=== PATIENT | male | born 1965 | race Two or more races ===

== ENCOUNTER 2020-03-13 02:59 | Emergency (ER) | payer MEDICAID, OTHER ==
[~2020-03-13] VITALS: Ht 175.3 cm; Wt 68.0 kg
[2020-03-13] MEDS ORDERED: LORAZEPAM INJ 2 MG/ML VIAL IM ONE (03:00)
[2020-03-13] MEDS ORDERED: HALOPERIDOL LACTATE INJ 5 MG/ML VIAL IM ONE (03:00)
[2020-03-13] MEDS ORDERED: HALOPERIDOL LACTATE INJ 5 MG/ML VIAL ONE (03:01)
[2020-03-13] MEDS ORDERED: LORAZEPAM INJ 2 MG/ML VIAL ONE (03:03)
--- NOTE | 2020-03-13 03:05 | NUR ---
PT [employer] AND [employer] FOR C/O L WRIST PAIN S/P FALL AT 1630 YESTERDAY. PT AWAKE, DELIRIOUS, AND MANIC, VSS, RESPIRATIONS EVEN AND UNLABORED ON RA W/ NAD NOTED. PT CONNECTED TO THE [employer] AND POX.
[2020-03-13 03:21] LABS: BASOPHILS # (AUTO) 0.1 /CMM (0.0-0.2); BASOPHILS % (AUTO) 0.8 % (0.0-2.0); EOSINOPHILS % (AUTO) 0.1 % (0.0-6.0); HEMATOCRIT 40 % (39-51); HEMOGLOBIN 13.1 g/dL (13.5-17.5); MEAN CORPUSCULAR HGB CONC 33 g/dl (31.0-36.0); MEAN CORPUSCULAR VOLUME 88 fL (80-96); NEUTROPHILS # (AUTO) 10.1 /CMM (1.8-8.9); NEUTROPHILS % (AUTO) 83.1 % (43.0-81.0); PLATELET COUNT (AUTO) 364 /CMM (150-450); RED BLOOD CELL COUNT(AUTO) 4.51 MIL/uL (4.5-6.0); WHITE BLOOD COUNT (AUTO) 12.1 K/uL (4.3-11.0)
[2020-03-13 03:28] LABS: CALCIUM, SERUM 8.4 mg/dL (8.5-10.1); CARBON DIOXIDE 24 mmol/L (21-32); CHLORIDE 99 mmol/L (98-107); CREATININE 2.1 mg/dL (0.6-1.3); GLUCOSE 88 mg/dL (74-106); POTASSIUM 4.4 mmol/L (3.5-5.1); SODIUM SERUM 139 mmol/L (136-145); UREA NITROGEN, BLOOD 31 mg/dL (7-18)
[2020-03-13 03:33] LABS: ALANINE AMINOTRANSFERASE 39 U/L (12-78); ALBUMIN 4.2 g/dL (3.4-5.0); ALCOHOL, BLOOD < 3 mg/dL (0-0); ALKALINE PHOSPHATASE 122 U/L (46-116); ASPARTATE AMINOTRANSFERASE 71 U/L (15-37); BILIRUBIN,DIRECT 0.1 mg/dL (0.0-0.2); BILIRUBIN,TOTAL 0.3 mg/dL (0.2-1.0); TOTAL PROTEIN, SERUM 8.2 g/dL (6.4-8.2)
[2020-03-13 03:38] LABS: ACETAMINOPHEN 0 ug/ml (10-30); SALICYLATE 2.7 mg/dL (2.8-20.0)
--- NOTE | 2020-03-13 05:40 | NUR ---
PT AWAKE. AAOX4. AMBULATORY WITH STEADY GAIT. PT MEDICALLY CLEARED FOR DISCHARGE.
--- NOTE | 2020-03-13 05:40 | NUR ---
Patient given written and verbal discharge instructions. Patient verbalizes understanding of instructions. Patient is ambulatory with steady gait. Refuses offer of residential placement. Patient given list of available shelters in surrounding area.
[2020-03-13 05:48] VITALS: BP 129/80
== END 2020-03-13 05:48 | disposition home or self-care (01) ==
LOC: ER 03:00
DX: S63.592A Other specified sprain of left wrist, initial encounter (principal); F19.10 Other psychoactive substance abuse, uncomplicated; J45.909 Unspecified asthma, uncomplicated; Z88.8 Allergy status to other drugs, medicaments and biological substances; W18.39XA Other fall on same level, initial encounter; Y93.89 Activity, other specified; Y92.89 Other specified places as the place of occurrence of the external cause; Y99.8 Other external cause status
CPT/HCPCS: 36415; 73100; 80048; 80076; 80307; 80329; 85025; 96372 ×2; 99284; G0480; J1630; J2060

== ENCOUNTER 2021-01-31 21:55 | Emergency (ER) | payer SELFPAY ==
[~2021-01-31] VITALS: Ht 175.3 cm; Wt 70.3 kg
[2021-01-31 22:00] VITALS: BP 129/86
--- NOTE | 2021-01-31 22:42 | NUR ---
pt was eloped from ER. made aware,
== END 2021-02-01 00:07 | disposition left against medical advice (07) ==
LOC: ER 21:58
DX: F19.90 Other psychoactive substance use, unspecified, uncomplicated (principal); J45.909 Unspecified asthma, uncomplicated; F20.9 Schizophrenia, unspecified; F17.200 Nicotine dependence, unspecified, uncomplicated; Z88.8 Allergy status to other drugs, medicaments and biological substances; Z59.0 Homelessness

== ENCOUNTER 2021-07-07 18:40 | Emergency (ER) | payer MEDICAID ==
[~2021-07-07] VITALS: Ht 177.8 cm; Wt 72.6 kg
--- NOTE | 2021-07-07 19:05 | NUR ---
PT [place]RA C/O [place], NOT SLEEPING FOR "A FEW DAYS", AND BEING FOUND NAKED ON SOMEONE'S YARD. PT AAOX4 BREATHING EVENLY AND UNLABORED. PT ATTACHED TO MONITOR AND POX. PT GIVEN BLANKET AND CALL LIGHT WITHIN REACH
[2021-07-07 20:52] LABS: BASOPHILS # (AUTO) 0.1 K/uL (0.0-0.2); EOSINOPHILS % (AUTO) 0.5 % (0.0-6.0); HEMATOCRIT 36 % (39-51); HEMOGLOBIN 11.8 g/dL (13.5-17.5); LYMPHOCYTES # (AUTO) 1.8 K/uL (0.8-4.8); LYMPHOCYTES % (AUTO) 16.6 % (20.0-44.0); MEAN CORPUSCULAR HGB CONC 33 g/dl (31.0-36.0); MEAN CORPUSCULAR VOLUME 91 fL (80-96); MONOCYTES # (AUTO) 0.8 K/uL (0.1-1.30); MONOCYTES % (AUTO) 6.9 % (2.0-12.0); NEUTROPHILS # (AUTO) 8.3 K/uL (1.8-8.9); PLATELET COUNT (AUTO) 320 K/uL (150-450); RED BLOOD CELL COUNT(AUTO) 3.97 MIL/uL (4.5-6.0); WHITE BLOOD COUNT (AUTO) 11.1 K/uL (4.3-11.0)
[2021-07-07 20:57] LABS: CALCIUM, SERUM 8.3 mg/dL (8.5-10.1); CARBON DIOXIDE 25 mmol/L (21-32); CHLORIDE 105 mmol/L (98-107); CREATININE 1.4 mg/dL (0.6-1.3); GLUCOSE 145 mg/dL (74-106); POTASSIUM 3.7 mmol/L (3.5-5.1); SODIUM SERUM 142 mmol/L (136-145); UREA NITROGEN, BLOOD 26 mg/dL (7-18)
[2021-07-07 21:10] LABS: ACETAMINOPHEN < 10 ug/ml (10-30); ALANINE AMINOTRANSFERASE 14 U/L (12-78); ALBUMIN 3.6 g/dL (3.4-5.0); ALCOHOL, BLOOD < 3 mg/dL (0-0); ALKALINE PHOSPHATASE 82 U/L (46-116); ASPARTATE AMINOTRANSFERASE 17 U/L (15-37); BILIRUBIN,DIRECT 0.1 mg/dL (0.0-0.2); BILIRUBIN,TOTAL 0.2 mg/dL (0.2-1.0)
[2021-07-07 21:51] LABS: BILIRUBIN,URINE SMALL (NEGATIVE); COLOR,URINE YELLOW (YELLOW); LEUKOCYTE ESTERASE ,URINE Negative (NEGATIVE); NITRITE, URINE Negative (NEGATIVE); PH,URINE 5.5 (5.0-8.0); PROTEIN,URINE 30 mg/dl (NEGATIVE); UGLUCOSE Negative (NEGATIVE); UROBILINOGEN,URINE 0.2 EU/dL (0.2)
[2021-07-07 22:00] LABS: RBC,URINE 0-2 /HPF (0-2)
[2021-07-07 22:01] LABS: BACTERIA,URINE Rare /HPF (None Seen); SPERM,URINE Rare /HPF (None Seen); SQUAMOUS EPITHELIAL CELL,UR 0-2 /HPF (None Seen); WBC,URINE 0-2 /HPF (0-3)
--- NOTE | 2021-07-07 22:10 | NUR ---
CALLED [facility] CONTRACT SPECIALIST FOR PSYCH EVAL. TOLD ME TO CALL [place] CONTRACT SPECIALIST.
--- NOTE | 2021-07-07 22:11 | NUR ---
CALLED DINO NEWSCAST DIRECTOR, SHE WILL CALL BACK.
[2021-07-07] MEDS ORDERED: IV NS 0.9% 1,000 ML BAG IV ONE (22:30)
--- NOTE | 2021-07-07 22:34 | NUR ---
CALLED DINO BACK, SHE WILL BE HERE IN 30 MINUTES.
--- NOTE | 2021-07-07 23:00 | NUR ---
SOFTWARE RELIABILITY ENGINEER AT BEDSIDE
--- NOTE | 2021-07-08 00:15 | NUR ---
PT SITTING QUIETLY IN BED. ATTACHED TO MONITOR
[2021-07-08] MEDS ORDERED: OLANZAPINE 10 MG VIAL IM ONE ×2 (00:21)
--- NOTE | 2021-07-08 01:45 | NUR ---
Patient is resting comfortably in bed with eyes closed. Easily aroused. VSS
--- NOTE | 2021-07-08 02:35 | NUR ---
PT ATTACHED TO MONITOR AND POX. VSS
--- NOTE | 2021-07-08 03:49 | NUR ---
Patient is resting comfortably in bed with eyes closed. Easily aroused. VSS
--- NOTE | 2021-07-08 04:56 | NUR ---
PT SLEEPING, VSS, ATTACHED TO MONITOR
--- NOTE | 2021-07-08 05:06 | NUR ---
PT ASLEEP EASY TO WAKE UP BUT WITH UNSTEADY GAIT AT THIS MOMENT
--- NOTE | 2021-07-08 09:44 | NUR ---
PT N STATED FEELING BETTER Patient discharged to home in stable condition. Written and verbal after care instructions given. Patient verbalizes understanding of instruction.IV removed. Catheter intact and site benign. Pressure and 4x4 applied to site. No bleeding noted.
[2021-07-08 09:48] VITALS: BP 122/80
[2021-07-08] MEDS ORDERED: IBUP-1955 PO (19:17)
== END 2021-07-08 09:50 | disposition home or self-care (01) ==
LOC: ER 18:43
DX: F29 Unspecified psychosis not due to a substance or known physiological condition (principal); F19.959 Other psychoactive substance use, unspecified with psychoactive substance-induced psychotic disorder, unspecified; J45.909 Unspecified asthma, uncomplicated; F20.9 Schizophrenia, unspecified; F17.200 Nicotine dependence, unspecified, uncomplicated; Z88.8 Allergy status to other drugs, medicaments and biological substances; Z59.0 Homelessness
CPT/HCPCS: 36415; 80048; 80076; 80143; 80307; 80320; 81001; 85025; 96360; 96372; 99285; J3490; J7030; G0480

== ENCOUNTER 2021-07-08 18:04 | Emergency (ER) | payer MEDICAID ==
[~2021-07-08] VITALS: Ht 167.6 cm; Wt 72.6 kg
--- NOTE | 2021-07-08 18:10 | NUR ---
[employer] AND [employer] FOR AUTO VS PEDS, C/O LEFT UPPER EXTREMITY PAIN AND POSTERIOR HEAD LACERATION. PATIENT A/OX4, AMBULATORY WITH STEADY GAIT. NO DISTRESS NOTED.
[2021-07-08] MEDS ORDERED: BACITRACIN ZINC OINT PACKET 1 EA PACKET TP ONE ×2 (18:26→18:30)
[2021-07-08] MEDS ORDERED: LIDOCAINE HCL/MPF 1% 30 ML VIAL IJ ONE (18:26)
[2021-07-08] MEDS ORDERED: ACETAMINOPHEN ES 500 MG TABLET ONE (18:26)
[2021-07-08] MEDS ORDERED: ACETAMINOPHEN ES 500 MG TABLET PO ONE (18:30)
[2021-07-08] MEDS ORDERED: LIDOCAINE 1% INJ 50 ML MDV IJ ONE (18:30)
[2021-07-08] MEDS ORDERED: IBUP-1955 PO (19:17)
--- NOTE | 2021-07-08 19:37 | NUR ---
Patient discharged to home in stable condition. Written and verbal after care instructions given. Patient verbalizes understanding of instruction.IV removed. Catheter intact and site benign. Pressure and 4x4 applied to site. No bleeding noted.Pt ambulatory with a pair of crutches.
--- NOTE | 2021-07-08 19:38 | NUR ---
HOMELESS WAIVER SIGNED BY THE PT
[2021-07-08 19:47] VITALS: BP 112/78
== END 2021-07-08 19:47 | disposition home or self-care (01) ==
LOC: ER 18:06
DX: S01.01XA Laceration without foreign body of scalp, initial encounter (principal); M79.605 Pain in left leg; M25.552 Pain in left hip; M25.562 Pain in left knee; J45.909 Unspecified asthma, uncomplicated; F17.200 Nicotine dependence, unspecified, uncomplicated; F25.9 Schizoaffective disorder, unspecified; Z88.8 Allergy status to other drugs, medicaments and biological substances; Z59.0 Homelessness; V02.99XA Pedestrian with other conveyance injured in collision with two- or three-wheeled motor vehicle, unspecified whether traffic or nontraffic accident, initial encounter; Y93.89 Activity, other specified; Y92.89 Other specified places as the place of occurrence of the external cause; Y99.8 Other external cause status
CPT/HCPCS: 12001; 70450; 71045; 72170; 73503; 73564; 99284; A6403; J3490; 73502

== ENCOUNTER 2021-11-02 19:52 | Emergency (ER) | payer SELFPAY ==
[~2021-11-02] VITALS: Ht 167.6 cm; Wt 76.2 kg
[~2021-11-02 19:52] MED LIST: IBUP-1955 PO
== END 2021-11-02 20:01 | disposition home or self-care (01) ==
LOC: ER 19:55
DX: Z53.21 Procedure and treatment not carried out due to patient leaving prior to being seen by health care provider (principal)

== ENCOUNTER 2022-01-09 21:43 | Emergency (ER) | payer MEDICAID ==
[~2022-01-09] VITALS: Ht 167.6 cm; Wt 65.8 kg
--- NOTE | 2022-01-09 21:57 | NUR ---
[employer]IBRA[employer] & [employer]. RUNNING INTO OTHER PEOPLE'S HOME. PT IS HYPERVERBAL. PT AWAKE AND NOT COOPERATIVE. TOLERATING R/A WELL WITH NO SOB. CONNECTED PT TO POX AND MONITOR.
--- NOTE | 2022-01-09 22:33 | NUR ---
PROFESSOR OF MUSICOLOGY AT [facility]
[2022-01-09] MEDS ORDERED: HALOPERIDOL LACTATE INJ 5 MG/ML VIAL ONE (22:37)
[2022-01-09] MEDS ORDERED: diphenhydrAMINE HCL 50 MG/ML VIAL ONE (22:37)
[2022-01-09] MEDS ORDERED: HALOPERIDOL LACTATE INJ 5 MG/ML VIAL IM ONE (23:00)
[2022-01-09] MEDS ORDERED: diphenhydrAMINE HCL 50 MG/ML VIAL IM ONE (23:00)
[2022-01-09] MEDS ORDERED: LORAZEPAM INJ 2 MG/ML VIAL ONE (23:29)
[2022-01-09] MEDS ORDERED: LORAZEPAM INJ 2 MG/ML VIAL IM ONE (23:30)
[2022-01-10 00:26] LABS: BASOPHILS % (AUTO) 0.4 % (0.0-2.0); EOSINOPHILS % (AUTO) 0.1 % (0.0-6.0); HEMATOCRIT 36 % (39-51); HEMOGLOBIN 11.5 g/dL (13.5-17.5); LYMPHOCYTES # (AUTO) 1.9 K/uL (0.8-4.8); MEAN CORPUSCULAR HGB CONC 32 g/dl (31.0-36.0); MEAN CORPUSCULAR VOLUME 89 fL (80-96); MONOCYTES # (AUTO) 1.1 K/uL (0.1-1.30); MONOCYTES % (AUTO) 8.9 % (2.0-12.0); NEUTROPHILS # (AUTO) 9.5 K/uL (1.8-8.9); NEUTROPHILS % (AUTO) 75.6 % (43.0-81.0); PLATELET COUNT (AUTO) 325 K/uL (150-450); WHITE BLOOD COUNT (AUTO) 12.6 K/uL (4.3-11.0)
[2022-01-10] MEDS ORDERED: LIDOCAINE 2% JEL UROJET 10 ML MM ONE (00:56)
[2022-01-10 01:16] LABS: ALANINE AMINOTRANSFERASE 31 U/L (12-78); ALBUMIN 3.7 g/dL (3.4-5.0); ALCOHOL, BLOOD < 3 mg/dL (0-0); ALKALINE PHOSPHATASE 79 U/L (46-116); ASPARTATE AMINOTRANSFERASE 62 U/L (15-37); BILIRUBIN,DIRECT 0.1 mg/dL (0.0-0.2); BILIRUBIN,TOTAL 0.4 mg/dL (0.2-1.0); CARBON DIOXIDE 26 mmol/L (21-32); CHLORIDE 103 mmol/L (98-107); CREATININE 1.7 mg/dL (0.6-1.3); GLUCOSE 89 mg/dL (74-106); SODIUM SERUM 138 mmol/L (136-145); UREA NITROGEN, BLOOD 31 mg/dL (7-18)
[2022-01-10 01:41] LABS: ACETAMINOPHEN < 2 ug/ml (10-30)
[2022-01-10 01:48] LABS: BILIRUBIN,URINE NEGATIVE (NEGATIVE); COLOR,URINE YELLOW (YELLOW); LEUKOCYTE ESTERASE ,URINE NEGATIVE (NEGATIVE); NITRITE, URINE NEGATIVE (NEGATIVE); PH,URINE 5.5 (5.0-8.0); PROTEIN,URINE 100 mg/dl (NEGATIVE); UGLUCOSE NEGATIVE (NEGATIVE); UROBILINOGEN,URINE 0.2 EU/dL (0.2)
[2022-01-10 01:52] LABS: BACTERIA,URINE Few /HPF (None Seen); SQUAMOUS EPITHELIAL CELL,UR Moderate /HPF (None Seen)
--- NOTE | 2022-01-10 03:18 | NUR ---
PT SLEEPING IN BED. PT IN NO ACUTE DISTRESS AT TIME. VSS. ALL NEEDS MET AT THIS TIME
--- NOTE | 2022-01-10 07:51 | NUR ---
ASSESSED PT ON BED ASLEEP EASILY AROUSABLE, NOT IN RESPIRATORY DISTRESS, V/S STABLE, KEPT RESTED AND COMFORTABLE. WILL CONTINUE TO MONITOR.
--- NOTE | 2022-01-10 11:33 | NUR ---
Psychiatric Placement: The pt. is a 56 year old male on a 5150 hold for danger to others. Per hold, the pt. was reportedly walking through traffic and an apartment complex disrobed. Per hold, the pt. was not cooperative with officers and responding to internal stimuli & "yelling obscenities". SHIRA met with pt. at bedside. The pt. has his face covered with blanket and refused to comply with SS assessment. SHIRA faxed clinicals to the following psychiatric hospitals for possible treatment: [facility] [facility] [address]; Unit TEL: [phone] Intake need PCR. SHIRA notified Christiano Rangel about PCR request. [facility] FAX: [phone] TEL: [phone] [facility]: TEL: [phone] [facility] FAX [phone] [facility]:take medi-christine/medicare tel:[phone] FAX:[phone] SHIRA will follow up as needed.
--- NOTE | 2022-01-10 12:46 | NUR ---
Patient has been accepted to [facility] [[address] [place] [address]; Unit TEL: [phone] Intake ] Per Rocio from Intake. The pt. will be admitted to UNIT 1 [facility] in room 100F under the care of Dr. Warner. Nurse to nurse report to be called in at TEL: [phone]. [facility] to arrange transportation CAIT. SHIRA notified ED.
[2022-01-10 12:52] VITALS: BP 116/69
--- NOTE | 2022-01-10 12:57 | NUR ---
PCR COVID test result required to be faxed to [facility] [place] when results are back. SHIRA notified Katie MARTINEZ.
--- NOTE | 2022-01-10 13:02 | NUR ---
REPORT GIVEN TO YUNIEL LI OF [facility] FOR [facility]ICHIE.
--- NOTE | 2022-01-10 13:28 | NUR ---
[facility] CALLED FOR TRANSPORT ETA 30 MINS PER WILLIAM.
--- NOTE | 2022-01-10 14:28 | NUR ---
REPORT GIVEN EMS FOR PT TRANSFER TO [facility].
== END 2022-01-10 14:35 ==
LOC: ER 21:47
DX: F23 Brief psychotic disorder (principal); F15.129 Other stimulant abuse with intoxication, unspecified; Z59.00 Homelessness unspecified; J45.909 Unspecified asthma, uncomplicated; N28.9 Disorder of kidney and ureter, unspecified; D72.829 Elevated white blood cell count, unspecified; Z20.822 Contact with and (suspected) exposure to COVID-19
CPT/HCPCS: 36415; 80048; 80076; 80143; 80307; 80320; 81001; 85025; 87426; 96372 ×2; 99285; C9803; J1200; J1630; J2060; J3490; U0003; G0480